=== PATIENT | male | born 1965 | race Caucasian/White ===

== ENCOUNTER 2016-08-10 17:50 | Emergency (ER) | payer MEDICAID ==
[~2016-08-10] VITALS: Ht 170.2 cm; Wt 73.0 kg
[2016-08-10 17:58] VITALS: BP 131/105
== END 2016-08-10 23:00 | disposition left against medical advice (07) ==
LOC: ER 17:55
DX: K92.1 Melena (principal); Z53.21 Procedure and treatment not carried out due to patient leaving prior to being seen by health care provider
CPT/HCPCS: 93005